=== PATIENT | male | born 1965 | race Caucasian/White ===

== ENCOUNTER 2018-07-30 22:47 | Emergency (ER) | payer OTHER ==
[~2018-07-30] VITALS: Ht 180.3 cm; Wt 108.9 kg
[2018-07-30 23:23] VITALS: BP 150/84
[2018-07-30] MEDS ORDERED: TETRACAINE 0.5% OPHTH SOLUTION 4ML BOTTLE. OS ONE (23:45)
[2018-07-30] MEDS ORDERED: FLUORESCEIN OPHTH TEST STRIP. OS ONE (23:45)
[2018-07-31] MEDS ORDERED: ERYT1OIN6 OP (00:04)
[2018-07-31] MEDS ORDERED: HYDR-2758 PO (00:04)
--- NOTE | 2018-07-31 00:05 | PHYS DOC ---
Past Medical History Past Medical History: No Pertinent History Past Surgical History: Cholecystectomy Alcohol Use: None Drug Use: None Adult General Chief Complaint Chief Complaint: EYE PROBLEMS HPI HPI Patient is a 53 year old male who presents to the emergency department with complaints of left eye pain. Patient states that he was at work when he slipped and hit himself in the left eye with his cell phone. Patient denies any other complaints. States that his left eye has been very painful and tearing since the injury. Patient states that it feels like his sinuses are feeling with fluid. He denies any nasal congestion, sore throat, cough, head injury, neck pain, or other complaints. Patient states his pain as a 10 out of 10 and he cannot open his eye to see because of the pain. He denies use of contact lenses or corrective lenses. Review of Systems Review of Systems Constitutional: Denies fever or chills [] Eyes: See HPI HENT: Denies nasal pain, reports fullness in sinuses Musculoskeletal: Denies back pain or joint pain [] Integument: Denies rash or skin lesions [] Neurologic: Denies headache, focal weakness or sensory changes [] Complete systems were reviewed and found to be within normal limits, except as documented in this note. Current Medications Current Medications Current Medications Medications (Trade) Dose Ordered Sig/Lucretia Start Time Stop Time Status Last Admin Dose Admin Fluorescein Sodium (Ful-Lidia) 1 strip 1X ONCE 07/30/18 23:45 07/30/18 23:46 DC 07/30/18 23:43 1 STRIP Tetracaine HCl (Tetracaine) 1 drop 1X ONCE 07/30/18 23:45 07/30/18 23:46 DC 07/30/18 23:43 1 DROP Allergies Allergies Allergies Coded Allergies Type Severity Reaction Last Updated Verified No Known Drug Allergies 07/30/18 No Physical Exam Physical Exam Constitutional: Well developed, well nourished, no acute distress, non-toxic appearance. [] HENT: Normocephalic, atraumatic, bilateral external ears normal, oropharynx moist, no oral exudates, nose normal. [] Eyes: PERRLA, EOMI, conjunctiva normal; L eye tearing with slight bruising noted to left upper lid, watery discharge from L eye, no conjunctival hemorrhage visible foreign body, no bony tenderness with palpation of orbit Neck: Normal range of motion, no tenderness, supple, no stridor. [] Skin: Warm, dry, no erythema, no rash. [] Neurologic: Alert and oriented X 3, normal motor function, normal sensory function, no focal deficits noted. [] Psychologic: Affect normal, judgement normal, mood normal. [] Current Patient Data Vital Signs Vital Signs Date Time Temp Pulse Resp B/P (MAP) Pulse Ox O2 Delivery O2 Flow Rate FiO2 07/30/18 23:23 98.1 76 20 150/84 (106) 95 Room Air 98.1 EKG EKG [] Radiology/Procedures Radiology/Procedures Using tetracaine and fluroscein the patient's eye was examined under Wood's lamp and an area of uptake between 1 o'clock and 3 o'clock approximately was noted. Patient's ocular symptoms have stabilized while they have been evaluated in the department and are appropriate for outpatient work up. No evidence of ruptured globe, retinal detachment, acute angle closure glaucoma , or deep space infection. Plan for 24 hour ophthalmologic follow up.] Course & Med Decision Making Course & Med Decision Making Pertinent Labs and Imaging studies reviewed. (See chart for details) Dx: L eye corneal abrasion Prescriptions for erythromycin eye ointment and hyrdrocodone. PT advised to follow up with ophthalmology in 24 hours. Return to ER if symptoms worsen. Patient verbalized an understanding of home care, medications, follow-up, and return to ED instructions and was in agreement with the plan of care. [] Dragon Disclaimer Dragon Disclaimer This electronic medical record was generated, in whole or in part, using a voice recognition dictation system. Departure Departure Impression: Primary Impression: Corneal abrasion Disposition: 01 HOME, SELF-CARE Condition: STABLE Referrals: NO PCP (PCP) Patient Instructions: Eye - Corneal Abrasion, [id number] Additional Instructions: Fill prescriptions and use as directed. Follow up with ophthalmology in 24 hours , return to the ER if symptoms worsen. Scripts Hydrocodone Bit/Acetaminophen (HYDROCODONE-APAP 5-325 ) 1 Each Tablet 1 TAB PO PRN Q6HRS PRN for PAIN for 3 Days, #12 TAB 0 Refills Prov: ANTELMO VANN BOX PACKER 07/31/18 Erythromycin Base (Erythromycin) 1 Gm Oint...g. 1 GM OP QID for 5 Days, #1 TUBE 0 Refills Prov: ANTELMO VANN APRN 07/31/18 Problem Qualifiers Primary Impression: Corneal abrasion Encounter type: initial encounter Laterality: left Qualified Codes: S05.02XA - Injury of conjunctiva and corneal abrasion without foreign body, left eye, initial encounter ANTELMO VANN BOX PACKER Jul 31, 2018 00:05
[2018-07-31] MEDS ORDERED: HYDROcodone/APAP 5/325MG 1 TAB TABLET PO ONE (00:15)
[2018-07-31] MEDS ORDERED: ERYTHROMYCIN 0.5% OPHTH OINTMENT 1GM TUBE. OS ONE (00:15)
== END 2018-07-31 00:25 | disposition home or self-care (01) ==
LOC: ER 22:47
DX: S05.02XA Injury of conjunctiva and corneal abrasion without foreign body, left eye, initial encounter (principal); Z90.49 Acquired absence of other specified parts of digestive tract; W01.198A Fall on same level from slipping, tripping and stumbling with subsequent striking against other object, initial encounter; Y93.89 Activity, other specified; Y92.89 Other specified places as the place of occurrence of the external cause; Y99.0 Civilian activity done for income or pay
CPT/HCPCS: 99284

== ENCOUNTER 2018-09-23 16:25 | Emergency (ER) | payer SELFPAY ==
[~2018-09-23] VITALS: Ht 177.8 cm; Wt 104.3 kg
[~2018-09-23 16:25] MED LIST: ERYT1OIN6 OP; HYDR-2761 PO
[2018-09-23 16:34] VITALS: BP 136/78
[2018-09-23] MEDS ORDERED: IV NORMAL SALINE 1000ML BAG 1,000 ML IV ONE (16:45)
[2018-09-23] MEDS ORDERED: fentaNYL PF VIAL 100 MCG/2 ML VIAL IV ONE (16:45)
--- NOTE | 2018-09-23 16:51 | PHYS DOC ---
Past Medical History Past Medical History: No Pertinent History Past Surgical History: Cholecystectomy Additional Past Surgical Histo: hernia repair Additional Information: 11/14 ppd Alcohol Use: None Drug Use: None Adult General Chief Complaint Chief Complaint: ABDOMINAL PAIN HPI HPI Patient is a 53 year old male who presents with right lower quadrant pain that radiates to left lower quadrant pain at 1400 today. He denies nausea, vomiting, diarrhea, fever, shortness of air, chest pain. Patient rates the pain a 3 out of 10. Patient cannot STEMI the quality of the pain and states it just feels like real muscle stretch too far. He states when he coughs or walks it hurts more. Patient did not take any pain medications before arrival. 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 He has no known drug allergies. Review of Systems Review of Systems Constitutional: Denies fever or chills [] Eyes: Denies change in visual acuity, redness, or eye pain [] HENT: Denies nasal congestion or sore throat [] Respiratory: Denies cough or shortness of breath [] Cardiovascular: No additional information not addressed in HPI [] GI: RLQ abdominal pain, denies nausea, vomiting, bloody stools or diarrhea [] : Denies dysuria or hematuria [] Musculoskeletal: Denies back pain or joint pain [] Integument: Denies rash or skin lesions [] Neurologic: Denies headache, focal weakness or sensory changes [] All other systems were reviewed and found to be within normal limits, except as documented in this note. Current Medications Current Medications Current Medications Medications (Trade) Dose Ordered Sig/Lucretia Start Time Stop Time Status Last Admin Dose Admin Fentanyl Citrate (Fentanyl 2ml Vial) 50 mcg 1X ONCE 09/23/18 16:45 09/23/18 16:48 DC Info (CONTRAST GIVEN -- Rx MONITORING) 1 each PRN DAILY PRN 09/23/18 17:30 09/25/18 17:29 Iohexol (Omnipaque 300 Mg/ml) 75 ml 1X ONCE 09/23/18 17:30 09/23/18 17:31 DC 09/23/18 17:52 75 ML Sodium Chloride 1,000 ml @ 1,000 mls/hr 1X ONCE 09/23/18 16:45 09/23/18 17:44 DC 09/23/18 17:11 1,000 MLS/HR Allergies Allergies Allergies Coded Allergies Type Severity Reaction Last Updated Verified No Known Drug Allergies 07/30/18 No Physical Exam Physical Exam Constitutional: Well developed, well nourished, no acute distress, non-toxic appearance. [] HENT: Normocephalic, atraumatic, bilateral external ears normal, oropharynx moist, no oral exudates, nose normal. [] Eyes: PERRLA, EOMI, conjunctiva normal, no discharge. [] Neck: Normal range of motion, no tenderness, supple, no stridor. [] Cardiovascular:Heart rate regular rhythm, no murmur [] Lungs & Thorax: Bilateral breath sounds clear to auscultation [] Abdomen: Bowel sounds normal, soft, RLQ tenderness, no masses, no pulsatile masses. [] Skin: Warm, dry, no erythema, no rash. [] Back: No tenderness, no CVA tenderness. [] Extremities: No tenderness, no cyanosis, no clubbing, ROM intact, no edema. [] Neurologic: Alert and oriented X 3, normal motor function, normal sensory function, no focal deficits noted. [] Psychologic: Affect normal, judgement normal, mood normal. [] Current Patient Data Vital Signs Vital Signs Date Time Temp Pulse Resp B/P (MAP) Pulse Ox O2 Delivery O2 Flow Rate FiO2 09/23/18 16:34 98.9 75 20 136/78 (97) 99 Room Air 98.9 Lab Values Laboratory Tests Test 09/23/18 16:55 09/23/18 18:30 White Blood Count 8.8 x10^3/uL (4.0-11.0) Red Blood Count 5.12 x10^6/uL (4.30-5.70) Hemoglobin 16.6 g/dL (13.0-17.5) Hematocrit 46.7 % (39.0-53.0) Mean Corpuscular Volume 91 fL (79-100) Mean Corpuscular Hemoglobin 33 pg (25-35) Mean Corpuscular Hemoglobin Concent 36 g/dL (31-37) Red Cell Distribution Width 14.0 % (11.5-14.5) Platelet Count 216 x10^3/uL (140-400) Neutrophils (%) (Auto) 65 % (31-73) Lymphocytes (%) (Auto) 25 % (24-48) Monocytes (%) (Auto) 5 % (0-9) Eosinophils (%) (Auto) 4 % (0-3) H Basophils (%) (Auto) 1 % (0-3) Neutrophils # (Auto) 5.7 x10^3uL (1.8-7.7) Lymphocytes # (Auto) 2.2 x10^3/uL (1.0-4.8) Monocytes # (Auto) 0.4 x10^3/uL (0.0-1.1) Eosinophils # (Auto) 0.3 x10^3/uL (0.0-0.7) Basophils # (Auto) 0.1 x10^3/uL (0.0-0.2) Sodium Level 142 mmol/L (136-145) Potassium Level 3.8 mmol/L (3.5-5.1) Chloride Level 103 mmol/L (98-107) Carbon Dioxide Level 29 mmol/L (21-32) Anion Gap 10 (6-14) Blood Urea Nitrogen 17 mg/dL (8-26) Creatinine 1.1 mg/dL (0.7-1.3) Estimated GFR (Cockcroft-Gault) 70.6 BUN/Creatinine Ratio 15 (6-20) Glucose Level 148 mg/dL (70-99) H Calcium Level 9.1 mg/dL (8.5-10.1) Total Bilirubin 0.4 mg/dL (0.2-1.0) Aspartate Amino Transferase (AST) 28 U/L (15-37) Alanine Aminotransferase (ALT) 47 U/L (16-63) Alkaline Phosphatase 65 U/L (46-116) Total Protein 7.2 g/dL (6.4-8.2) Albumin 3.6 g/dL (3.4-5.0) Albumin/Globulin Ratio 1.0 (1.0-1.7) Lipase 87 U/L (73-393) Urine Collection Type Unknown Urine Color Yellow Urine Clarity Clear Urine pH 7.0 Urine Specific [place] >=1.030 Urine Protein Negative mg/dL (NEG-TRACE) Urine Glucose (UA) Negative mg/dL (NEG) Urine Ketones (Stick) Negative mg/dL (NEG) Urine Blood Negative (NEG) Urine Nitrite Negative (NEG) Urine Bilirubin Negative (NEG) Urine Urobilinogen Dipstick 0.2 mg/dL (0.2 mg/dL) Urine Leukocyte Esterase Negative (NEG) Urine RBC Occ /HPF (0-2) Urine WBC 0 /HPF (0-4) Urine Amorphous Sediment Present /HPF Urine Bacteria 0 /HPF (0-FEW) Urine Mucus Marked /LPF Laboratory Tests 09/23/18 16:55 Laboratory Tests 09/23/18 16:55 EKG EKG [] Radiology/Procedures Radiology/Procedures CT ABD PELV Impressions: [facility] [address] [place] [address] IMAGING REPORT Signed PATIENT: CHINYERE ALMAGUER ACCOUNT: [id number] : 1965 LOCATION: ER AGE: 53 SEX: M EXAM STATUS: REG ER ORD. PHYSICIAN: HELEN JARRETT APRN REASON: RLQ/LLQ PAIN PROCEDURE: CT ABD PELV W/ IV CONTRST ONLY Examination: CT ABD PELV W/ IV CONTRST ONLY History: RLQ LLQ PAIN INJ 75ML OMNI 300 NO PREV Comparison/Correlation: None Findings: Axial images of the abdomen and pelvis were obtained following IV contrast. Sagittal and coronal reformatted images were provided. Visualized lung bases are clear. Liver and spleen are unremarkable. Adrenal glands are normal. Pancreas is normal. Small hiatal hernia is present. Cholecystectomy evident. Bilateral renal lesions are small in size. The right renal lower pole, there is a 1.6 cm diameter low-attenuation lesion which has density as would be expected of a cyst. The left lower pole low-attenuation lesion is too small for catheterization but also may represent a cyst. Right lower pole calyceal calculus measuring less than 0.3 cm diameter is present. Left upper pole calyceal calculus measuring 0.4 cm diameter is present. Punctate left lower pole calyceal calculus is suggested as well. Punctate right renal superior pole calyceal calculus suggested. No significant hydronephrosis or hydroureter. Slight left perinephric stranding is present. There is a punctate left ureterovesical junction calculus measuring less than 0.2 cm diameter. Urinary bladder calculus is present. Small umbilical hernia contains omental fat. No extraluminal gas or obstruction. Appendix is normal. No ascites or pelvic free fluid. Bony structures are unremarkable for the patient's age. Impression: Small hiatal hernia. Punctate mildly obstructive left ureterovesical junction calculus is present. Bilateral renal calculi are nonobstructive. Urinary bladder calculus appears to be present. Electronically signed by: Henry Mejia MD (09/23/2018 6:54 PM) [facility] DICTATED and SIGNED BY: HENRY MEJIA MD DATE: 09/23/18 [id number] Course & Med Decision Making Course & Med Decision Making Patient is a 53 year old male who presents with right lower quadrant pain that radiates to left lower quadrant pain at 1400 today. He denies nausea, vomiting, diarrhea, fever, shortness of air, chest pain. Patient rates the pain a 3 out of 10. Patient cannot STEMI the quality of the pain and states it just feels like real muscle stretch too far. He states when he coughs or walks it hurts more. Patient did not take any pain medications before arrival. 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 He has no known drug allergies. Alert and oriented. Mucous members are moist. Skin is pink warm and dry. Abdomen is soft but tender in the right lower quadrant. Lungs are clear to auscultation all lobes. Heart rate regular without murmur. Afebrile. Vital signs within normal limits. Blood work unremarkable. Urinalysis shows no infection. CT Abdomen shows Small hiatal hernia. Punctate mildly obstructive left ureterovesical junction calculus is present. Bilateral renal calculi are nonobstructive. Urinary bladder calculus appears to be present. Patient is to follow up with Urology Wednesday. Dragon Disclaimer Dragon Disclaimer This electronic medical record was generated, in whole or in part, using a voice recognition dictation system. Departure Departure Impression: Primary Impression: Kidney stone Disposition: HOME, SELF-CARE Condition: STABLE Referrals: NO PCP (PCP) RUSTY ALEXIS MD Patient Instructions: Kidney Stones Additional Instructions: Drink plenty of fluids. Take medications as prescribed. Follow up with urology on Wednesday. Return if you began running a fever, unable to urinate or cannot keep medications down due to vomiting Scripts Ibuprofen (IBUPROFEN) 600 Mg Tablet 600 MG PO PRN Q6HRS PRN for INFLAMMATION, #20 TAB Prov: HELEN JARRETT ADOLESCENT COUNSELOR 09/23/18 Hydrocodone/Apap 5-325 (NORCO 5-325 TABLET) 1 Each Tablet 1 TAB PO PRN Q6HRS PRN for PAIN, #15 TAB 0 Refills Prov: HELEN JARRETT APRN 09/23/18 Tamsulosin Hcl (FLOMAX) 0.4 Mg Cap.er.24h 1 CAP PO DAILY, #30 CAP 11 Refills Prov: HELEN JARRETT APRN 09/23/18 HELEN JARRETT APRN Sep 23, 2018 16:51
[2018-09-23 17:10] LABS: BASO # 0.1 x10^3/uL (0.0-0.2); BASO % 1 % (0-3); EOS # 0.3 x10^3/uL (0.0-0.7); EOS % 4 % (0-3); HEMATOCRIT 46.7 % (39.0-53.0); HEMOGLOBIN 16.6 g/dL (13.0-17.5); LYMPH # 2.2 x10^3/uL (1.0-4.8); LYMPH % 25 % (24-48); MEAN CORPUSCULAR HEMOGLOBIN 33 pg (25-35); MEAN CORPUSCULAR HGB CONC 36 g/dL (31-37); MEAN CORPUSCULAR VOLUME 91 fL (79-100); MONO # 0.4 x10^3/uL (0.0-1.1); MONO % 5 % (0-9); NEUT # 5.7 x10^3uL (1.8-7.7); NEUT % 65 % (31-73); PLATELET COUNT 216 x10^3/uL (140-400); RED BLOOD COUNT 5.12 x10^6/uL (4.30-5.70); WHITE BLOOD COUNT 8.8 x10^3/uL (4.0-11.0)
[2018-09-23 17:21] LABS: CALCIUM 9.1 mg/dL (8.5-10.1); CREATININE 1.1 mg/dL (0.7-1.3); GFR 70.6; POTASSIUM 3.8 mmol/L (3.5-5.1)
[2018-09-23 17:27] LABS: ALBUMIN 3.6 g/dL (3.4-5.0); TOTAL BILIRUBIN 0.4 mg/dL (0.2-1.0); TOTAL PROTEIN 7.2 g/dL (6.4-8.2)
[2018-09-23] MEDS ORDERED: CONTRAST GIVEN. MC PRN (17:30)
[2018-09-23] MEDS ORDERED: IOHEXOL 300 MG/ML 100ML VIAL. IV ONE (17:30)
[2018-09-23 18:45] LABS: BILIRUBIN,URINE NEGATIVE (NEG); CLARITY,URINE CLEAR; COLOR,URINE YELLOW; NITRITE,URINE NEGATIVE (NEG); PROTEIN,URINE NEGATIVE (NEG-TRACE); UROBILINOGEN,URINE 0.2 mg/dL (0.2 mg/dL)
[2018-09-23 18:52] LABS: AMORPHOUS SEDIMENT,UR PRESENT /HPF; BACTERIA,URINE 0 /HPF (0-FEW); RBC,URINE OCC /HPF (0-2); WBC,URINE 0 /HPF (0-4)
--- NOTE | 2018-09-23 18:58 | RAD ---
Examination: CT ABD PELV W/ IV CONTRST ONLY History: RLQ LLQ PAIN INJ 75ML OMNI 300 NO PREV Comparison/Correlation: None Findings: Axial images of the abdomen and pelvis were obtained following IV contrast. Sagittal and coronal reformatted images were provided. Visualized lung bases are clear. Liver and spleen are unremarkable. Adrenal glands are normal. Pancreas is normal. Small hiatal hernia is present. Cholecystectomy evident. Bilateral renal lesions are small in size. The right renal lower pole, there is a 1.6 cm diameter low-attenuation lesion which has density as would be expected of a cyst. The left lower pole low-attenuation lesion is too small for catheterization but also may represent a cyst. Right lower pole calyceal calculus measuring less than 0.3 cm diameter is present. Left upper pole calyceal calculus measuring 0.4 cm diameter is present. Punctate left lower pole calyceal calculus is suggested as well. Punctate right renal superior pole calyceal calculus suggested. No significant hydronephrosis or hydroureter. Slight left perinephric stranding is present. There is a punctate left ureterovesical junction calculus measuring less than 0.2 cm diameter. Urinary bladder calculus is present. Small umbilical hernia contains omental fat. No extraluminal gas or obstruction. Appendix is normal. No ascites or pelvic free fluid. Bony structures are unremarkable for the patient's age. Impression: Small hiatal hernia. Punctate mildly obstructive left ureterovesical junction calculus is present. Bilateral renal calculi are nonobstructive. Urinary bladder calculus appears to be present. Electronically signed by: Henry Mcconnell MD (09/23/2018 6:54 PM) [facility]
[2018-09-23] MEDS ORDERED: TAMS0.4C97 PO (19:09)
[2018-09-23] MEDS ORDERED: HYDR-3164 PO (19:09)
[2018-09-23] MEDS ORDERED: IBUP-1007 PO (19:09)
== END 2018-09-23 19:49 | disposition home or self-care (01) ==
LOC: ER 16:25
DX: N20.2 Calculus of kidney with calculus of ureter (principal); N21.0 Calculus in bladder; K42.9 Umbilical hernia without obstruction or gangrene; F17.200 Nicotine dependence, unspecified, uncomplicated
CPT/HCPCS: 36415; 74177; 80053; 81001; 83690; 85025; 99284; J7030; Q9967; 96360; 96361